=== PATIENT | female | born 1990 | race Two or more races ===

== ENCOUNTER 2016-09-02 23:56 | Emergency (ER) | payer SELFPAY ==
[~2016-09-02] VITALS: Ht 157.5 cm; Wt 56.2 kg
--- NOTE | 2016-09-03 00:20 | NUR ---
PT CAME IN WITH C/O BURNING TYPE PAIN WITH URINATION.PT WAS PLACED ON ANTIBIOTICS AND STARTED TAKING THEM ON SATURDAY.PT STATES COLOR OF URINE NOW HAS SMALL AMT OF LIGHT RED.PT STATES HAS WHITISH DISCHARE.PT STATES WAS DIAGNOSED WITH VAGINOSIS ABOUT 1 YR AGO.SINCE THEN HAS HAD DISCHARGE,UTI AND YEAST INFECTIONS. PT IS ALERT, ORIENTED X 4, NO RESP DISTRESS NOTED OR REPORTED UPON ASSESSMENT... MD AT BEDSIDE...
[2016-09-03] MEDS ORDERED: FOLI1TAB16 PO (00:34)
[2016-09-03] MEDS ORDERED: FERR-56 PO (00:34)
[2016-09-03] MEDS ORDERED: CEPH500T PO (00:34)
[2016-09-03 00:55] LABS: HEMATOCRIT 31.3 % (37.0-47.0); MEAN CORPUSCULAR HEMOGLOBIN 27.1 uug (27.0-31.0); MEAN CORPUSCULAR HGB CONC 32 g/dL (32.0-37.0); MEAN CORPUSCULAR VOLUME 84.9 fL (81.0-99.0); PLATELET COUNT (AUTO) 276 K/uL (150-450); RED BLOOD CELL COUNT(AUTO) 3.68 MIL/uL (4.20-5.40); RED CELL DISTRIBUTION WIDTH 14.6 % (11.5-14.5); WHITE BLOOD COUNT (AUTO) 8.1 K/uL (4.0-11.2)
[2016-09-03 01:04] LABS: CALCIUM 8.4 mg/dL (8.5-10.1); CREATININE 0.6 mg/dL (0.6-1.3); POTASSIUM 3.9 mmol/L (3.5-5.1)
[2016-09-03 01:10] LABS: ALBUMIN 3.6 g/dL (3.4-5.0); BILIRUBIN,DIRECT 0.1 mg/dL (0.0-0.2); BILIRUBIN,TOTAL 0.3 mg/dL (0.2-1.0); TOTAL PROTEIN, SERUM 7.3 g/dL (6.4-8.2)
--- NOTE | 2016-09-03 02:51 | NUR ---
Patient discharged to home in stable conditon. Written and verbal after care instructions given. Patient verbalizes understanding of instructions. Pt walked out of ER unassisted with partner and belongings at side...
[2016-09-03 02:52] VITALS: BP 126/97
[2016-09-03 02:53] LABS: BAND % (MANUAL) 1 % (0-10); EOSINOPHILS % (MANUAL) 1 % (0-8); LYMPHOCYTES % (MANUAL) 16 % (20-40); MONOCYTES % (MANUAL) 9 % (2-10); NEUTROPHILS % (MANUAL) 73 % (42-75); PLATELET ESTIMATE ADEQUATE
== END 2016-09-03 02:53 | disposition home or self-care (01) ==
LOC: ER 23:59
DX: O20.0 Threatened abortion (principal); Z3A.01 Less than 8 weeks gestation of pregnancy
CPT/HCPCS: 36415; 76856; 80048; 80076; 84702; 85025; 85730; 99285; A4663